=== PATIENT | male | born 1980 | race Caucasian/White ===

== ENCOUNTER 2017-09-23 10:13 | Emergency (ER) | payer SELFPAY, OTHER | END 2017-09-23 19:30 | disposition left against medical advice (07) | LOC: E/R 10:13 | DX: Z53.21 Procedure and treatment not carried out due to patient leaving prior to being seen by health care provider (principal) ==

== ENCOUNTER 2017-09-24 07:20 | Emergency (ER) | payer OTHER ==
[2017-09-24] MEDS: ONDANSETRON (ODT) 4 MG TAB ODT (09:04)
[2017-09-24] MEDS: IBUPROFEN 800 MG TAB PO (09:04)
[2017-09-24] MEDS: HYDROCODONE/APAP (10/325) TAB PO (09:04)
== END 2017-09-24 10:00 | disposition home or self-care (01) ==
LOC: E/R 07:20
DX: R07.9 Chest pain, unspecified (principal); G89.29 Other chronic pain; M54.5 Low back pain; E11.9 Type 2 diabetes mellitus without complications; I10 Essential (primary) hypertension; F17.210 Nicotine dependence, cigarettes, uncomplicated; Z79.84 Long term (current) use of oral hypoglycemic drugs; Z79.4 Long term (current) use of insulin
CPT/HCPCS: 71010; 93005; 99284-25

== ENCOUNTER 2017-10-01 13:55 | Emergency (ER) | payer OTHER ==
[2017-10-01] MEDS: IBUPROFEN 800 MG TAB PO (16:10)
== END 2017-10-01 16:23 | disposition home or self-care (01) ==
LOC: FTE 13:55
DX: J06.9 Acute upper respiratory infection, unspecified (principal); E11.9 Type 2 diabetes mellitus without complications; I10 Essential (primary) hypertension; F17.210 Nicotine dependence, cigarettes, uncomplicated; Z79.4 Long term (current) use of insulin
CPT/HCPCS: 82962; 99283

== ENCOUNTER 2017-10-08 05:40 | Inpatient (IN) | payer OTHER ==
[2017-10-08 07:49] LABS: ADD MAN DIFF? NO
[2017-10-08] MEDS: SOD CHLORIDE 0.9% 1,000 ML IV (07:50)
[2017-10-08 07:51] LABS: BASOPHIL # 0.1 10^3/ul (0.0-0.1); BASOPHILS % 0.3 % (0.0-2.0); EOSINOPHILS % 0.1 % (0.0-7.0); HEMATOCRIT 40.3 % (42.0-52.0); HEMOGLOBIN 13.7 g/dl (14.0-18.0); LYMPHOCYTES # 2.2 10^3/ul (0.8-2.9); LYMPHOCYTES % 11.3 % (15.0-51.0); MEAN CORPUSCULAR VOLUME 85.4 fl (82.0-101.0); MEAN PLATELET VOLUME 10.1 fl (7.4-10.4); MONOCYTE # 0.9 10^3/ul (0.3-0.9); MONOCYTES % 4.4 % (0.0-11.0); NEUTROPHIL # 16.1 10^3/ul (1.6-7.5); NEUTROPHILS % 82.8 % (39.0-77.0); PLATELET COUNT 421 10^3/UL (140-415); RED BLOOD COUNT 4.72 10^6/ul (4.70-6.10); RED CELL DISTRIBUTION WIDTH 13.5 % (11.5-14.5)
[2017-10-08 07:51] LABS: WHITE BLOOD COUNT 19.4 10^3/ul (4.8-10.8)
[2017-10-08 08:09] LABS: ALANINE AMINOTRANSFERASE 80 IU/L (13-69); ALBUMIN 3.6 g/dl (3.3-4.9); ALBUMIN/GLOBULIN RATIO 0.73; ALKALINE PHOSPHATASE 178 IU/L (42-121); ANION GAP 15 (8-16); ASPARTATE AMINO TRANSFERASE 67 IU/L (15-46); BILIRUBIN,INDIRECT 0.4 mg/dl (0-1.1); BILIRUBIN,TOTAL 0.4 mg/dl (0.2-1.3); BLOOD UREA NITROGEN 11 mg/dl (7-20); CALCIUM 9.5 mg/dl (8.4-10.2); CARBON DIOXIDE 28 mmol/L (21-31); CHLORIDE 91 mmol/L (97-110); CREATINE KINASE 78 IU/L (23-200); CREATININE 0.88 mg/dl (0.61-1.24); POTASSIUM 4.1 mmol/L (3.5-5.1); SODIUM 130 mmol/L (135-144); TOTAL PROTEIN 8.5 g/dl (6.1-8.1)
[2017-10-08 08:12] LABS: INR 1.13; PARTIAL THROMBOPLASTIN TIME 29.7 Sec (25.0-35.0); PROTIME 14.7 Sec (11.9-14.9); PT RATIO 1.1
[2017-10-08 08:22] LABS: B-TYPE NATRIURETIC PEPTIDE 134 PG/ML (0-125); CK INDEX 0.8; GLUCOSE 499 mg/dl (70-220); TROPONIN-I < 0.012 ng/ml (0.00-0.12)
[2017-10-08] MEDS: METHYLPREDNISOLONE 125 MG INJ IV (08:37)
[2017-10-08] MEDS: HYDROmorphONE 1 MG/ML SYG IV ×2 (08:38→10:17)
[2017-10-08] MEDS: ONDANSETRON 4 MG INJ IV ×2 (08:38→10:17)
[2017-10-08] MEDS: IPRATROPIUM (NEB) 0.5 MG/2.5 ML AMP INH ×2 (09:15→13:31)
[2017-10-08] MEDS: ALBUTEROL 0.5% (NEB) 2.5 MG/0.5 ML AMP INH (09:15)
[2017-10-08] MEDS ORDERED: ONDANSETRON 4 MG INJ IV (13:00)
[2017-10-08] MEDS ORDERED: ACETAMINOPHEN 325 MG TAB PO ×2 (13:00→13:30)
[2017-10-08] MEDS: SODIUM CHLORIDE 0.9% 1L BAG IV* (13:14)
[2017-10-08] MEDS: CEFTRIAXONE 1 GM/50 ML (PMX) 50 ML IVPB (13:14)
[2017-10-08] MEDS: AZITHROMYCIN 500MG/NS (PMX) 250 ML IV (13:14)
[2017-10-08] MEDS: INSULIN LISPRO 100 UNIT/ML VIAL SC (13:17)
[2017-10-08] MEDS: IPRATROPIUM (NEB) 0.5 MG/2.5 ML AMP NEB (13:28)
[2017-10-08] MEDS: ALBUTEROL 0.083% (NEB) 2.5 MG/3 ML AMP HHN (13:28)
[2017-10-08] MEDS ORDERED: BISACODYL (EC) 5 MG TAB PO (13:30)
[2017-10-08] MEDS: ALBUTEROL 0.5% (NEB) 2.5 MG/0.5 ML AMP NEB (13:30)
[2017-10-08] MEDS ORDERED: NACL 0.9% 3 ML SYG IV (13:30)
[2017-10-08] MEDS ORDERED: DOCUSATE SODIUM 100 MG CAP PO (13:30)
[2017-10-08] MEDS ORDERED: MAGNESIUM HYDROXIDE 30ML CUP PO (13:30)
[2017-10-08 13:59] LABS: HEMOGLOBIN A1C 11.5 % (0-5.9)
[2017-10-08] MEDS ORDERED: GLUCOSE GEL 15 GRAM TUBE BUCCAL (14:00)
[2017-10-08] MEDS ORDERED: DEXTROSE 50% 50 ML SYRINGE IV ×2 (14:00)
[2017-10-08] MEDS ORDERED: GLUCAGON 1 MG INJ IM (14:00)
[2017-10-08] MEDS ORDERED: GLUCOSE GEL 15 GRAM TUBE PO ×2 (14:00)
[2017-10-08 14:08] LABS: LACTIC ACID 1.8 mmol/L (0.5-2.0)
[2017-10-08] MEDS: DOXYCYCLINE 100 MG in SOD CHLORIDE 0.9% 250 ML IV (16:01)
[2017-10-08] MEDS: DOXYCYCLINE 100 MG in DEXTROSE 5% 250 ML IV (16:01)
[2017-10-08] MEDS: oxyCODONE 5 MG TAB PO ×2 (16:10→22:46)
[2017-10-08 16:55] LABS: ANION GAP 19 (8-16); BLOOD UREA NITROGEN 12 mg/dl (7-20); CARBON DIOXIDE 24 mmol/L (21-31); CHLORIDE 97 mmol/L (97-110); CREATININE 0.68 mg/dl (0.61-1.24); POTASSIUM 4.6 mmol/L (3.5-5.1); SODIUM 135 mmol/L (135-144)
[2017-10-08 16:59] LABS: GLUCOSE 462 mg/dl (70-220)
[2017-10-08] MEDS: INSULIN ASPART [NOVOLOG] 3 ML PEN SC ×4 (17:27→21:29)
[2017-10-08] MEDS ORDERED: INSULIN ASPART [NOVOLOG] 3 ML PEN SC (17:35)
[2017-10-08] MEDS ORDERED: glipiZIDE 10 MG TAB PO (21:00)
[2017-10-08] MEDS ORDERED: INSULIN GLARGINE [LANtus] 3 ML PEN SC (21:00)
[2017-10-08] MEDS: INSULIN GLARGINE [LANtus] 3 ML PEN SC (21:27)
[2017-10-08] MEDS ORDERED: HYDROmorphONE 2 MG/ML SYG (21:43)
[2017-10-08] MEDS: ALBUTEROL/IPRATROPIUM (NEB) 3 ML AMP HHN (23:39)
[2017-10-09] MEDS: HYDROmorphONE 0.5 MG/0.5 ML SYG IV ×3 (01:25→09:43)
[2017-10-09] MEDS: ACCU-CHEK XX (01:36)
[2017-10-09] MEDS: oxyCODONE 5 MG TAB PO (03:58)
[2017-10-09] MEDS: ALBUTEROL/IPRATROPIUM (NEB) 3 ML AMP HHN ×3 (05:24→19:45)
[2017-10-09] MEDS: GUAIFENESIN/DM 5ML CUP PO ×3 (05:33→17:52)
[2017-10-09 06:10] LABS: ADD MAN DIFF? NO
[2017-10-09 06:14] LABS: BASOPHILS % 0.2 % (0.0-2.0); HEMATOCRIT 35.6 % (42.0-52.0); HEMOGLOBIN 11.9 g/dl (14.0-18.0); LYMPHOCYTES # 2.2 10^3/ul (0.8-2.9); LYMPHOCYTES % 12.5 % (15.0-51.0); MEAN CORPUSCULAR HEMOGLOBIN 28.5 pg (29.0-33.0); MEAN CORPUSCULAR HGB CONC 33.4 g/dl (32.0-37.0); MEAN CORPUSCULAR VOLUME 85.4 fl (82.0-101.0); MEAN PLATELET VOLUME 10.3 fl (7.4-10.4); MONOCYTE # 0.5 10^3/ul (0.3-0.9); NEUTROPHIL # 14.8 10^3/ul (1.6-7.5); NEUTROPHILS % 83.1 % (39.0-77.0); PLATELET COUNT 386 10^3/UL (140-415); RED BLOOD COUNT 4.17 10^6/ul (4.70-6.10); RED CELL DISTRIBUTION WIDTH 13.7 % (11.5-14.5)
[2017-10-09 06:14] LABS: WHITE BLOOD COUNT 17.8 10^3/ul (4.8-10.8)
[2017-10-09 06:46] LABS: ALANINE AMINOTRANSFERASE 70 IU/L (13-69); ALBUMIN 3.1 g/dl (3.3-4.9); ALBUMIN/GLOBULIN RATIO 0.75; ALKALINE PHOSPHATASE 138 IU/L (42-121); ANION GAP 11 (8-16); ASPARTATE AMINO TRANSFERASE 69 IU/L (15-46); BLOOD UREA NITROGEN 16 mg/dl (7-20); CALCIUM 9.4 mg/dl (8.4-10.2); CARBON DIOXIDE 28 mmol/L (21-31); CHLORIDE 97 mmol/L (97-110); GLUCOSE 334 mg/dl (70-220); POTASSIUM 4.1 mmol/L (3.5-5.1); SODIUM 132 mmol/L (135-144); TOTAL PROTEIN 7.2 g/dl (6.1-8.1)
[2017-10-09 07:05] LABS: MAGNESIUM 1.8 mg/dl (1.7-2.5)
[2017-10-09 07:05] LABS: PHOSPHORUS 3.9 mg/dl (2.5-4.9)
[2017-10-09] MEDS: LEVOFLOXACIN 750 MG TABLET PO (08:20)
[2017-10-09] MEDS: DULOXETINE 30 MG CAP DR PO (08:20)
[2017-10-09] MEDS: ENOXAPARIN 40 MG/0.4 ML SYG SC (08:23)
[2017-10-09] MEDS: INSULIN ASPART [NOVOLOG] 3 ML PEN SC ×7 (08:23→21:08)
[2017-10-09] MEDS ORDERED: morphine 2 MG INJ IV (10:00)
[2017-10-09 10:28] LABS: HAAIG REFLEX REFLEX FILED
[2017-10-09] MEDS: OXYCODONE/ACETAMINOPHEN (10/325) TAB PO ×2 (11:45→17:52)
[2017-10-09 13:01] LABS: HEPATITIS B CORE ANTIBODY NEGATIVE (NEGATIVE); HEPATITIS B SURFACE ANTIGEN NEGATIVE (NEGATIVE); HEPATITIS C VIRAL ANTIBODY NEGATIVE (NEGATIVE)
[2017-10-09] MEDS: morphine LIQ (10 MG/5 ML) CUP PO ×2 (14:03→18:17)
[2017-10-09] MEDS: SOD CHLORIDE 0.45% 1,000 ML IV (16:19)
[2017-10-09] MEDS: morphine 2 MG INJ IV (20:57)
[2017-10-09] MEDS: INSULIN GLARGINE [LANtus] 3 ML PEN SC (21:37)
[2017-10-10] MEDS: morphine 2 MG INJ IV ×3 (01:22→10:07)
[2017-10-10] MEDS: ACCU-CHEK XX (02:17)
[2017-10-10] MEDS: OXYCODONE/ACETAMINOPHEN (10/325) TAB PO ×3 (02:17→14:20)
[2017-10-10] MEDS: hydrALAzine 20 MG INJ IV (02:52)
[2017-10-10] MEDS: GUAIFENESIN/DM 5ML CUP PO ×2 (02:52→09:17)
[2017-10-10 05:49] LABS: ADD MAN DIFF? NO
[2017-10-10 06:07] LABS: BASOPHILS % 0.2 % (0.0-2.0); EOSINOPHILS # 0.1 10^3/ul (0.0-0.5); EOSINOPHILS % 0.5 % (0.0-7.0); HEMATOCRIT 38.5 % (42.0-52.0); HEMOGLOBIN 13.2 g/dl (14.0-18.0); LYMPHOCYTES # 2.5 10^3/ul (0.8-2.9); LYMPHOCYTES % 21.7 % (15.0-51.0); MEAN CORPUSCULAR HEMOGLOBIN 29.1 pg (29.0-33.0); MEAN CORPUSCULAR HGB CONC 34.3 g/dl (32.0-37.0); MEAN CORPUSCULAR VOLUME 84.8 fl (82.0-101.0); MEAN PLATELET VOLUME 10.9 fl (7.4-10.4); MONOCYTE # 0.5 10^3/ul (0.3-0.9); MONOCYTES % 3.9 % (0.0-11.0); NEUTROPHIL # 8.5 10^3/ul (1.6-7.5); NEUTROPHILS % 72.7 % (39.0-77.0); PLATELET COUNT 405 10^3/UL (140-415); RED BLOOD COUNT 4.54 10^6/ul (4.70-6.10); RED CELL DISTRIBUTION WIDTH 13.6 % (11.5-14.5)
[2017-10-10 06:07] LABS: WHITE BLOOD COUNT 11.7 10^3/ul (4.8-10.8)
[2017-10-10 06:38] LABS: ALANINE AMINOTRANSFERASE 76 IU/L (13-69); ALBUMIN 2.9 g/dl (3.3-4.9); ALKALINE PHOSPHATASE 115 IU/L (42-121); ASPARTATE AMINO TRANSFERASE 47 IU/L (15-46); BILIRUBIN,INDIRECT 0.2 mg/dl (0-1.1); BILIRUBIN,TOTAL 0.2 mg/dl (0.2-1.3); TOTAL PROTEIN 6.8 g/dl (6.1-8.1)
[2017-10-10 06:52] LABS: ANION GAP 10 (8-16); BLOOD UREA NITROGEN 11 mg/dl (7-20); CALCIUM 9.2 mg/dl (8.4-10.2); CARBON DIOXIDE 31 mmol/L (21-31); CHLORIDE 94 mmol/L (97-110); CREATININE 0.61 mg/dl (0.61-1.24); GLUCOSE 241 mg/dl (70-220); MAGNESIUM 1.5 mg/dl (1.7-2.5); PHOSPHORUS 3.3 mg/dl (2.5-4.9); POTASSIUM 3.9 mmol/L (3.5-5.1); SODIUM 131 mmol/L (135-144)
[2017-10-10] MEDS: ALBUTEROL/IPRATROPIUM (NEB) 3 ML AMP HHN ×2 (07:47→14:13)
[2017-10-10] MEDS: INSULIN ASPART [NOVOLOG] 3 ML PEN SC ×4 (08:27→12:09)
[2017-10-10] MEDS: DULOXETINE 30 MG CAP DR PO (09:12)
[2017-10-10] MEDS: LEVOFLOXACIN 750 MG TABLET PO (09:13)
[2017-10-10] MEDS: ENOXAPARIN 40 MG/0.4 ML SYG SC (09:18)
[2017-10-10] MEDS: MAGNESIUM SULFATE 2 GM/50 ML 50 ML IVPB (12:24)
[2017-10-10] MEDS: INFLUENZA VIRUS VACCINE 0.5 ML SYG IM* (13:24)
== END 2017-10-10 15:45 | disposition home or self-care (01) | DRG 871 ==
LOC: MS2 10-09 01:38 → E/R 05:40 → MS3 12:51
DX: A41.9 Sepsis, unspecified organism (principal); J18.9 Pneumonia, unspecified organism; E11.65 Type 2 diabetes mellitus with hyperglycemia; I10 Essential (primary) hypertension; E78.5 Hyperlipidemia, unspecified; M54.5 Low back pain; Z79.4 Long term (current) use of insulin
CPT/HCPCS: 36415; 71045; 76705; 80048; 80053; 80076; 82550; 82553; 82962; 83036; 83605; 83735; 83880; 84100; 84484; 85025; 85610; 85730; 86403; 86704; 86709; 86803; 87040; 87275; 87276; 87279; 87280; 87340; 87400; 93005; 94640; 94644; 94664; 96365; 96366; 96368; 96372; 96375; 96376; 99285-25

== ENCOUNTER 2018-02-05 08:30 | Emergency (ER) | payer OTHER ==
[2018-02-05] MEDS: HYDROCODONE/APAP (10/325) TAB PO (11:29)
== END 2018-02-05 11:39 | disposition home or self-care (01) ==
LOC: FTE 08:30
DX: M54.5 Low back pain (principal); I10 Essential (primary) hypertension; E11.9 Type 2 diabetes mellitus without complications; Z79.4 Long term (current) use of insulin
CPT/HCPCS: 99283; Z7502